=== PATIENT | male | born 1960 | race Caucasian/White ===

== ENCOUNTER 2018-10-25 09:11 | Emergency (ER) | payer OTHER ==
[2018-10-25] MEDS ORDERED: DEXAMETHASONE SOD PHOSPHATE 10 MG/ML 1 ML VIAL IM STA (10:12)
[2018-10-25] MEDS ORDERED: KETOROLAC 60 MG/2 ML VIAL IM STA (10:12)
[2018-10-25] MEDS ORDERED: DIAZEPAM 5 MG/ML 2 ML INJ IM ONE (10:12)
[2018-10-25] MEDS ORDERED: cloNIDine HCL 0.2 MG TAB PO STA (10:17)
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
[2018-10-25 10:57] VITALS: PULSE 78; RESP 18
--- NOTE | 2018-10-25 12:17 | XR ---
EXAMINATION TYPE: XR cervical spine comp , 6 VIEWS DATE OF EXAM ORDERED: 10/25/2018 HISTORY: Pain. COMPARISON: None. FINDINGS: Vertebral body height and alignment appear normal. Atlantoaxial relationships are normal. Intervertebral foramina are widely patent. The uncovertebral joints appear normal. No fracture is see n. Prevertebral soft tissues are normal. There is a limbus vertebra present at C6. IMPRESSION: NO ACUTE OSSEOUS LESION.
[2018-10-25 12:39] VITALS: BP 133/76
[2018-10-25 13:03] VITALS: TEMP 97.6
== END 2018-10-25 13:03 | disposition home or self-care (01) ==
LOC: EC 09:11
DX: M62.838 Other muscle spasm (principal); I10 Essential (primary) hypertension; Z91.018 Allergy to other foods; X50.9XXA Other and unspecified overexertion or strenuous movements or postures, initial encounter; Y92.69 Other specified industrial and construction area as the place of occurrence of the external cause; Y99.0 Civilian activity done for income or pay
CPT/HCPCS: 72050; 99284; 96372 ×3; J1100; J3360; J1885

== ENCOUNTER → 2018-11-11 | Outpatient (CLI) | payer OTHER ==
--- NOTE | 2018-11-11 10:44 | MR ---
EXAMINATION TYPE: MR cervical spine wo con DATE OF EXAM: 11/11/2018 COMPARISON: None HISTORY: Sprain of ligaments of cervical spine CONTRAST: Performed utilizing 0 mL intravenous Gadavist gadolinium contrast. TECHNIQUE: Multiplanar multiecho imaging on a 3.0 Anaid magnet is performed through the cervical spin e. FINDINGS: The craniovertebral junction is normal. Vertebral body alignment is normal. C7-T1: No focal disc herniation or significant disc bulge is evident. No spinal canal stenosis or n eural foraminal stenosis is present. C6-7: Minimal right paracentral disc bulge may be present with anterior thecal sac contact. No spinal canal stenosis is present. Uncovertebral joint hypertrophy is mild foraminal narrowing.. C5-6: Left paracentral broad-based disc bulge is present. This more focal into the left paracentral r egion. There is cord contact and some cord flattening. AP spinal canal stenosis is not present. Uncov ertebral joint hypertrophy has severe left and moderate to severe right foraminal stenosis.. C4-5: Broad-based disc bulge has anterior thecal sac contact. No spinal canal stenosis present. Uncov ertebral joint hypertrophy contributes to moderate foraminal narrowing.. C3-4: There is a central subligamentous disc herniation with mild anterior thecal sac compression. No cord contact is evident. No spinal canal stenosis or neural foraminal stenosis is present.. C2-3: No focal disc herniation or significant disc bulge is evident. No spinal canal stenosis or jessica ral foraminal stenosis is present. IMPRESSIONS: 1. Left paracentral broad-based disc bulge C5-6 with moderate anterior thecal sac compression, cord c ontact and some cord deformity 2. Uncovertebral joint hypertrophy C5-6 C6-7 and to a lesser degree C4-5 foraminal narrowing.
== END | disposition home or self-care (01) ==
LOC: RADMRIMAIN 07:31
PROVIDERS: ATTEND Emergency Medicine
DX: M48.02 Spinal stenosis, cervical region (principal); M50.222 Other cervical disc displacement at C5-C6 level; M53.82 Other specified dorsopathies, cervical region
CPT/HCPCS: 72141

== ENCOUNTER → 2021-05-01 | Outpatient (CLI) | payer BC, MEDICARE, OTHER ==
--- NOTE | 2021-05-01 08:25 | CT ---
EXAMINATION TYPE: CT chest wo con DATE OF EXAM: 05/01/2021 COMPARISON: None HISTORY: Fibrosis High-resolution noncontrast CT of the chest was performed with the patient in the prone and supine po sitions. Lung and mediastinal window settings are submitted. The lung volumes are diminished. There is moderate pulmonary fibrosis seen bilaterally. There is no e vidence for bronchiectasis, groundglass infiltrate, nodule or mass. No pleural effusion is identifie d. I do not see evidence for hilar or mediastinal mass or adenopathy. IMPRESSION: Correlate for idiopathic pulmonary fibrosis.
== END | disposition home or self-care (01) ==
LOC: RADCTMAIN 07:50
PROVIDERS: ATTEND Internal Medicine Critical Care Medicine
DX: J84.10 Pulmonary fibrosis, unspecified (principal)
CPT/HCPCS: 71250